=== PATIENT | male | born 1960 | race Caucasian/White ===

== ENCOUNTER 2017-11-02 06:15 | Inpatient (IN) | payer OTHER ==
[~2017-11-02 06:15] MED LIST: ACETAMINOPHEN 1,000 MG/100 ML BTL IV ONE; CEFAZOLIN 2 Gram 2 GM/50 ML BAG IVPB ONE; FAMOTIDINE 20MG TABLET PO ONE; MECLIZINE 25 MG TABLET PO ONE; METOCLOPRAMIDE 10 MG TABLET PO ONE
[2017-11-02] MEDS ORDERED: SENNOSIDES/DOCUSATE SODIUM UD CAPSULE PO PRN (10:00)
[2017-11-02] MEDS ORDERED: OXYCODONE HCL 5 MG TABLET PO PRN (10:00)
[2017-11-02] MEDS ORDERED: TRAMADOL HCL 50 MG TABLET PO PRN ×2 (10:00)
[2017-11-02] MEDS ORDERED: DIPHENHYDRAMINE HCL 25 MG CAPSULE PO PRN (10:00)
[2017-11-02] MEDS ORDERED: HYDROMORPHONE HCL 1 MG/ML SYRINGE IVP PRN (10:00)
[2017-11-02] MEDS ORDERED: METOCLOPRAMIDE HCL 10 MG/2 ML VIAL IVP PRN (10:00)
[2017-11-02] MEDS ORDERED: ZOLPIDEM TARTRATE 5 MG TABLET PO PRN (10:00)
[2017-11-02] MEDS ORDERED: AL HYDROX/MAG HYDROX 30ML UD PO PRN (10:00)
[2017-11-02] MEDS ORDERED: MAGNESIUM HYDROXIDE 30 ML UDC PO PRN (10:00)
[2017-11-02] MEDS ORDERED: RINGERS SOLUTION,LACTATED 1,000 ML IV PRN (10:07)
[2017-11-02] MEDS: RINGERS SOLUTION,LACTATED 1,000 ML IV SCH (10:29)
[2017-11-02] MEDS ORDERED: PNEUM 23-VAL ADULT IM ONE (10:53)
[2017-11-02] MEDS ORDERED: TRANEXAMIC ACID 1,000 MG in 0.9 % SODIUM CHLORIDE 100ML 100 ML IVPB ONE (11:00)
[2017-11-02] MEDS: ONDANSETRON HCL IV 4 MG/2 ML VIAL IVP PRN ×2 (12:25→18:36)
[2017-11-02] MEDS: ACETAMINOPHEN 1,000 MG/100 ML BTL IV SCH ×2 (12:25→18:30)
--- NOTE | 2017-11-02 12:30 | Operative Note ---
DATE OF SURGERY: 11/02/2017 Surgeon: Bryan Bernard D.O. REFERRING PHYSICIAN: Irineo Casper D.O. PREOPERATIVE DIAGNOSIS: Primary osteoarthritis of the right knee. POSTOPERATIVE DIAGNOSIS: Primary osteoarthritis of the right knee. OPERATION: Right total knee arthroplasty. PROCEDURE: This 56-year-old male was taken to the operating room and placed in the supine position on the operating room table, after spinal anesthesia had been induced by the Department of Anesthesia. The right lower extremity was then elevated. It was prepped with Hibiclens and draped in the usual sterile fashion. It was exsanguinated and the tourniquet inflated to 300 mm Hg. All scrub personnel wore personal isolation suits. An anterior longitudinal midline incision was made, followed by a medial peripatellar arthrotomy incision, and intercondylar drill holes made for the intramedullary alignment trace in the intercondylar notch, and the cutting block was affixed at 6 degrees of valgus. A 9 mm cut was made and wafers of bone were removed. We then placed the sizing jig, and a size 72.5 was deemed to be the appropriate size. A 4-in-1 cutting block was then pinned in 3 degrees of external rotation, and the appropriate cuts were made and wafer of bone removed. We then directed our attention to the proximal tibia, and an extramedullary alignment guide was used to cut the proximal tibia, referencing a 10 mm cut off the lateral tibial plateau, even though both tibial plateaus demonstrated severe articular cartilage damage. Subsequently, after appropriate alignment had been assured, a 3-degree posterior slope cut was made; wafer of bone was removed. The remnants of the menisci and osteophytes were removed from the posterior aspect of the joint. The tibia was sized to a size 79 and a stem punch was used. The patella was then measured, cut, and restored to anatomic height with a 37x8.6 mm trial, and the trial components were inserted, with an 11 mm bearing being found to give us the most stable configuration throughout the full range of motion. The trial components were then removed and the wound copiously irrigated with pulse lavage and lactated Ringer solution. The joint was suctioned and dried. Exparel was injected into the posterior, medial, and lateral corners of the joint, and all components were cemented into place and excess cement removed after the insertion of each component. Initially, a tibial base plate was placed, followed by the tibial bearing and femoral component, and finally the patella. Once the cement hard hardened, the knee was again taken through a range of motion and found to be stable. The remainder of the Exparel was injected into the periosteum and joint capsule of the proximal tibia and distal femur. A drain was placed through a separate stab incision. The arthrotomy incision was closed with 2-0 Vicryl, subcutaneous tissue closed with 0 Vicryl, and skin was stapled. Sterile dressings and a Polar Care were applied, and the patient was taken to the recovery room in satisfactory condition. GROSS PATHOLOGY: This patient had severe osteoarthritis with full-thickness articular cartilage loss noted at the patella and both the medial and lateral compartments as well, the lateral compartment being surprisingly deficient. The final components inserted were a size 72.5 cruciate-retaining femur, a 79 tibia base plate, a 37x8.6 mm patella, and 11x79 mm anterior stabilized tibial bearing. [facility]
[2017-11-02] MEDS: OXYCODONE HCL 5 MG TABLET PO PRN ×3 (12:49→22:25)
[2017-11-02] MEDS ORDERED: BUPIVACAINE 0.75% W/EPI MPF 30ML VIAL IVP ONE (15:33)
[2017-11-02] MEDS ORDERED: TRANEXAMIC ACID 1,000 MG/10 ML ML IV ONE (15:33)
[2017-11-02] MEDS ORDERED: BUPIVACAINE LIPOSOME 266MG/20ML VIAL IV ONE (15:33)
[2017-11-02] MEDS: CEFAZOLIN 2 Gram 2 GM/50 ML BAG IVPB SCH ×2 (15:44→22:38)
[2017-11-02] MEDS: FONDAPARINUX 2.5 MG/0.5 ML SYR SQ SCH (15:45)
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
[2017-11-03] MEDS: ACETAMINOPHEN 1,000 MG/100 ML BTL IV SCH (01:25)
[2017-11-03] MEDS: OXYCODONE HCL 5 MG TABLET PO PRN ×2 (02:29→06:22)
[2017-11-03] MEDS: RINGERS SOLUTION,LACTATED 1,000 ML IV SCH (03:22)
[2017-11-03 06:44] LABS: HEMATOCRIT 39.5 % (42.0-52.0); HEMOGLOBIN 12.2 gm/dl (14.0-18.0); MEAN CELL VOLUME 84.2 fl (81-97); MEAN CORPUSCULAR HGB CONC 30.9 g/dl (32-36); MEAN PLATELET VOLUME 9.7 fl (7.4-10.4); PLATELET COUNT 244 K/uL (130-400); RED BLOOD COUNT 4.69 M/uL (4.40-5.70); RED CELL DISTRIBUTION WIDTH 13.4 % (11.5-14.5); WHITE BLOOD COUNT W/O DIFF 10.2 K/uL (4.2-12.2)
[2017-11-03] MEDS: CEFAZOLIN 2 Gram 2 GM/50 ML BAG IVPB SCH (07:45)
[2017-11-03] MEDS ORDERED: METFORMIN 500 MG TABLET PO SCH (08:00)
--- NOTE | 2017-11-03 09:28 | Physical Therapy Tx Note ---
Physical Therapy Tx Note - Treatment Note Tolerated: Good Total Time Spent With Patient: 30 Physical Therapy Tx Note: Detail (Patient states 7/10 pain in right knee. Patient transferred supine to sit min assist x1 to support right LE. Patient transferred sit to and from stand CGA x1. Patient ambulated 102 feet with standard walker CGA x1. Patient performed the following exercises x10 reps each : ankle pumps, quad sets, glut squeezes, seated heel slides, seated hamstring sets, and SLR with assist. Patient transferred sit to supine min assist x1 to support right LE. Patient was left supine in bed with intermittent pneumatic compression, cryo, and call light within reach.) Physical Therapy Problem List: Detail (1) LE weakness 2) Balance impairment 3) LE ROM restriction 4) Dependent with bed mobility and transfer 5) Poor safety awareness) Physical Therapy Goals: 1) Pt. will independently ambulate household distances with AD and not exhbit balance loss. 2) Pt. will be independent with bed mobility and transfer. 3) Pt. will verbalize understanding of HEP and precautions. 4) Pt. will independently ascend and descend at least 2 steps with or without AD and exhibit good understanding of LE advancement. 5) Pt. will exhibit good midline positioning with standing balance assessment for more than 1 minute duration. Prognosis: Good Physical Therapy Plan: Pt. is to be seen 1-2x per day for inpatient PT until inpatient PT goals met, and treatment will consist of bed mobility training, gait training, exercise instruction and performance for extremity strengthening and stretching, balance training, and transfer/safety training for safe D/C to home environment.
[2017-11-03] MEDS ORDERED: ACETAMINOPHEN 325 MG TAB PO PRN (10:00)
[2017-11-03] MEDS ORDERED: LISINOPRIL 20 MG TABLET PO SCH (10:00)
[2017-11-03] MEDS ORDERED: HYDROCODONE/APAP 7.5/325MG TABLET PO PRN ×2 (10:00)
[2017-11-03] MEDS ORDERED: HYDROCHLOROTHIAZIDE 12.5 MG CAPSULE PO SCH (10:00)
[2017-11-03] MEDS ORDERED: OXYCODONE/APAP 7.5MG/325MG TABLET PO PRN (10:00)
[2017-11-03] MEDS: OXYCODONE/APAP 7.5MG/325MG TABLET PO PRN ×2 (10:15→17:56)
[2017-11-03] MEDS ORDERED: LIDOCAINE 2% MDV (20MG/ML) 20ML VIAL IV ONE (14:36)
[2017-11-03] MEDS ORDERED: DIPHENHYDRAMINE HCL IV 50 MG/ML VIAL IVP ONE (14:36)
[2017-11-03] MEDS ORDERED: HYDROMORPHONE HCL 2 MG/ML VIAL IV ONE (14:36)
[2017-11-03] MEDS ORDERED: FENTANYL PF 100MCG/2ML VIAL IV ONE (14:36)
[2017-11-03] MEDS ORDERED: MIDAZOLAM HCL 2MG/2ML VIAL IV ONE (14:36)
[2017-11-03] MEDS ORDERED: PROPOFOL 10 MG/ML VIAL IV ONE (14:36)
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
--- NOTE | 2017-11-03 15:40 | Physical Therapy Tx Note ---
Physical Therapy Tx Note - Treatment Note Tolerated: Good Total Time Spent With Patient: 30 Physical Therapy Tx Note: Detail (Patient states right knee painful this afternoon. Patient transferred supine to sit min assist to support right LE. Patient transferred sit to and from stand CGA x1. Patient ambulated 102 feet with standard walker CGA x1. Patient ascended and descended 3 steps with using walker and stairwell railing CGA x1. Patient transferred sit to supine min assist to support right LE. Patient tolerated treatment well. Patient reports good understanding of HEP. Patient reports good understanding of stair climbing. Patient discharged from inpatient PT at this time as patient passed all inpatient PT goals. Patient was left supine in bed with call light within reach.) Physical Therapy Problem List: Detail (1) LE weakness 2) Balance impairment 3) LE ROM restriction 4) Dependent with bed mobility and transfer 5) Poor safety awareness) Physical Therapy Goals: 1) Pt. will independently ambulate household distances with AD and not exhbit balance loss. 2) Pt. will be independent with bed mobility and transfer. 3) Pt. will verbalize understanding of HEP and precautions. 4) Pt. will independently ascend and descend at least 2 steps with or without AD and exhibit good understanding of LE advancement. 5) Pt. will exhibit good midline positioning with standing balance assessment for more than 1 minute duration. Prognosis: Good Physical Therapy Plan: Patient discharged from inpatient PT at this time, as patient has passed all inpatient goals.
[2017-11-03] MEDS: FONDAPARINUX 2.5 MG/0.5 ML SYR SQ SCH (16:24)
--- NOTE | 2017-11-06 12:40 | Discharge Summary ---
DATE OF ADMISSION: 11/02/2017 DATE OF DISCHARGE: 11/03/2017 Surgeon: Bryan Bernard DO ADMITTING DIAGNOSIS: Osteoarthritis of the right knee. DISCHARGE DIAGNOSIS: Osteoarthritis of the right knee. OPERATIVE PROCEDURE: Elective right total knee arthroplasty. HISTORY OF PRESENT ILLNESS: This 56-year-old male was admitted to the hospital for elective total knee arthroplasty, tolerated the operative procedure well during his first postoperative day. He cleared physical therapy and was ready for discharge. He showed no signs of complications during the course of his hospitalization, and was discharged with instructions to have outpatient physical therapy, to wear his ELVIA hose during the day and remove them at night. He will take 81 mg of aspirin daily, which is his usual daily dose. He was given a prescription for [place] 7.5/325 #80, 1 or 2 every 6 hours as necessary for pain. Routine wound care instructions were given. He will follow up in the office in 2 weeks. Should he have any problems prior to being seen, he was instructed to call my office. ARAM
== END 2017-11-03 18:35 | disposition home or self-care (01) | DRG 470 ==
LOC: MEDSURG 06:15
PROVIDERS: ADMIT Orthopaedic Surgery; ATTEND Orthopaedic Surgery
PROC: 0SRC069 Replacement of Right Knee Joint with Oxidized Zirconium on Polyethylene Synthetic Substitute, Cemented, Open Approach (ICD-10-PCS; principal; 2017-11-02 08:00)
DX: M17.12 Unilateral primary osteoarthritis, left knee (principal); E11.9 Type 2 diabetes mellitus without complications; Z79.84 Long term (current) use of oral hypoglycemic drugs; I10 Essential (primary) hypertension; Z79.4 Long term (current) use of insulin
CPT/HCPCS: 36416; 82948; 85025; 93005; 97110; 97165; 97530; J1200; J2405; J2765; J3490

== ENCOUNTER 2019-05-10 22:46 | Emergency (ER) | payer OTHER ==
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
[2019-05-10 23:20] LABS: ABSOLUTE NEUTROPHIL COUNT 5.63; BASO % 0.2 % (0-6); EOS % 1.6 % (0-6); GRAN % 63.3 % (47-80); HEMOGLOBIN 13.4 gm/dl (14.0-18.0); LYMPH % 22.4 % (16-45); MEAN CELL VOLUME 84.8 fl (81-97); MEAN CORPUSCULAR HGB CONC 31.9 g/dl (32-36); MEAN PLATELET VOLUME 9.6 fl (7.4-10.4); MONO % 12.5 % (0-9); PLATELET COUNT 255 K/uL (130-400); RED BLOOD COUNT 4.95 M/uL (4.40-5.70); RED CELL DISTRIBUTION WIDTH 13.9 % (11.5-14.5); WHITE BLOOD COUNT W/O DIFF 8.9 K/uL (4.2-12.2)
[2019-05-10 23:29] LABS: BLOOD UREA NITROGEN 25 mg/dL (6-20)
[2019-05-10 23:30] LABS: CREATININE 0.9 mg/dL (0.7-1.2); EST GLOMERULAR FILTRATION RATE > 60 mL/min
[2019-05-10 23:32] LABS: GLUCOSE,RANDOM 168 mg/dL (74-109)
[2019-05-10 23:35] LABS: ALB/GLOB RATIO 1.7 (1.1-1.8); ALBUMIN 4.4 g/dL (4.0-5.0); ALKALINE PHOSPHATASE 59 U/L (40-129); ALT/SGPT 33 U/L (<41); AST/SGOT 19 U/L (10.0-50.0)
== END 2019-05-11 00:09 | disposition home or self-care (01) ==
LOC: ER 22:46
DX: R06.00 Dyspnea, unspecified (principal); R14.0 Abdominal distension (gaseous); M54.2 Cervicalgia; I10 Essential (primary) hypertension; E11.9 Type 2 diabetes mellitus without complications
CPT/HCPCS: 71046; 80053; 84484; 85025; 93005; 93010; 99284

== ENCOUNTER 2019-05-28 00:18 | Observation (INO) | payer OTHER ==
[2019-05-28] MEDS ORDERED: LORAZEPAM 2 MG/ML VIAL IV ONE (00:21)
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
[2019-05-28 00:49] LABS: ABSOLUTE NEUTROPHIL COUNT 4.78; BASO % 0.2 % (0-6); EOS % 2.9 % (0-6); GRAN % 59.5 % (47-80); HEMOGLOBIN 13.5 gm/dl (14.0-18.0); LYMPH % 28.4 % (16-45); MEAN CELL VOLUME 84.3 fl (81-97); MEAN CORPUSCULAR HEMOGLOBIN 27.1 pg (27-33); MEAN CORPUSCULAR HGB CONC 32.1 g/dl (32-36); MEAN PLATELET VOLUME 9.8 fl (7.4-10.4); PLATELET COUNT 228 K/uL (130-400); RED BLOOD COUNT 4.98 M/uL (4.40-5.70); RED CELL DISTRIBUTION WIDTH 13.9 % (11.5-14.5)
[2019-05-28 00:51] LABS: BLOOD UREA NITROGEN 22 mg/dL (6-20); EST GLOMERULAR FILTRATION RATE > 60 mL/min
[2019-05-28 00:54] LABS: GLUCOSE,RANDOM 126 mg/dL (74-109)
[2019-05-28] MEDS ORDERED: 0.9 % SODIUM CHLORIDE 1000ML 1,000 ML IV PRN (01:39)
[2019-05-28] MEDS ORDERED: PIOGLITAZONE 15 MG PO SCH (07:00)
[2019-05-28] MEDS ORDERED: LISINOPRIL 30 MG PO SCH (07:00)
[2019-05-28] MEDS ORDERED: HYDROCHLOROTHIAZIDE 25 MG PO SCH (07:00)
[2019-05-28] MEDS ORDERED: ROSUVASTATIN 5 MG PO SCH (07:00)
[2019-05-28] MEDS ORDERED: CANAGLIFLOZIN 300 MG PO SCH (07:00)
--- NOTE | 2019-05-28 08:37 | RADIOLOGY REPORT ---
EXAM: CHEST, TWO VIEWS HISTORY: CHEST TIGHTNESS. DIFFICULTY IN BREATHING. LOWER EXTREMITY SWELLING FOR ONE MONTH. TECHNIQUE: Upright PA and lateral views of the chest were obtained. Comparison: Two view chest radiographic examination dated 05/10/19. FINDINGS: The cardiomediastinal silhouette is normal in size and configuration. The pulmonary vasculature is nondilated. The lungs and pleural spaces are clear. No acute osseous abnormality. IMPRESSION: NO RADIOGRAPHIC EVIDENCE OF ACUTE CARDIOPULMONARY DISEASE. JOB NUMBER: [id number] [facility]
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
[2019-05-28] MEDS: METFORMIN 500 MG PO SCH (19:00)
[2019-05-28] MEDS: PIOGLITAZONE 15 MG PO SCH (19:30)
[2019-05-29] MEDS ORDERED: ROSUVASTATIN 5 MG PO SCH (06:00)
[2019-05-29] MEDS ORDERED: CANAGLIFLOZIN 300 MG PO SCH (06:00)
[2019-05-29] MEDS ORDERED: HYDROCHLOROTHIAZIDE 25 MG PO SCH (06:00)
[2019-05-29] MEDS ORDERED: LISINOPRIL 30 MG PO SCH (06:00)
[2019-05-29] MEDS: PIOGLITAZONE 15 MG PO SCH (07:24)
[2019-05-29] MEDS: METFORMIN 500 MG PO SCH (07:24)
[2019-05-29] MEDS ORDERED: PANTOPRAZOLE SODIUM 40 MG TABLET PO SCH (14:00)
--- NOTE | 2019-05-29 14:31 | Discharge Summary ---
Providers Discharge Summary Date: 05/29/19 Date of admission: 05/28/19 01:27 Attending physician: JEANNE LUNDBERG Primary care physician: Irineo Casper D.O. Consults: Consult Orders 05/28/19 10:01 Consult - Cardiology NOW Consulting Provider: Darrion Duarte Physician Instructions: Reason For Exam: nocturnal dyspnea, already on CPAP Does pt have current soda fountain manager?: Not Established Physical Exam - Vital Signs Vital Signs: Vital Signs - Last 24 Hrs Temp Pulse Resp BP Pulse Ox 05/29/19 09:00 20 05/29/19 07:15 97.7 F 74 18 123/70 97 05/29/19 00:00 97.9 F 74 18 127/63 98 05/28/19 16:00 97.6 F 72 18 125/69 100 - General General Appearance: Alert, Oriented x3, Cooperative, No acute distress Limitations: No limitations - Head Head exam: Atraumatic, Normocephalic, Normal inspection Head exam detail: negative: Abrasion, Contusion, Avila's sign, General tenderness, Hematoma, Laceration - Eye Eye exam: Normal appearance. negative: Conjunctival injection, Periorbital swelling, Periorbital tenderness, Scleral icterus - ENT Ear exam: negative: Auricular hematoma, Auricular trauma Nasal Exam: negative: Active bleeding, Discharge, Dried blood, Foreign body Mouth exam: negative: Drooling, Laceration, Muffled voice, Tongue elevation - Neck Neck exam: Normal inspection. negative: Meningismus, Tenderness - Respiratory Respiratory exam: Normal lung sounds bilaterally. negative: Rales, Respiratory distress, Rhonchi, Stridor - Cardiovascular Cardiovascular Exam: Regular rate, Normal rhythm, Normal heart sounds - GI/Abdominal GI/Abdominal exam: Soft. negative: Rebound, Rigid, Tenderness - Rectal Rectal exam: Deferred - exam: Deferred - Extremities Extremities exam: Normal inspection. negative: Pedal edema, Tenderness - Back Back exam: Denies: CVA tenderness (R), CVA tenderness (L) - Neurological Neurological exam: Alert, Normal gait, Oriented X3 - Psychiatric Psychiatric exam: Anxious - Skin Skin exam: Normal color. negative: Abrasion Type of lesion: negative: abrasion Hospitalization - Hospitalization Admission Diagnosis: Atypical chest pain - Problem List/Discharge Diagnosis (1) Atypical chest pain Current Visit: Yes Status: Acute Base Code: R07.89 - OTHER CHEST PAIN Comment: 05/29/19 - EKG in ED NSR - Troponin 1,2, 3 <0.010 - Nuclear stress test negative for acute process or concern - Echo unremarkable for acute concern - Cardiology consult completed, no new recommendations or need for continued service - Acid reflux vs. anxiety vs. CPAP malfunction. Will initiate PPI trial (2) Full code status Current Visit: Yes Status: Acute Base Code: Z78.9 - OTHER SPECIFIED HEALTH STATUS Comment: 05/29/19 (3) DVT prophylaxis Current Visit: Yes Status: Acute Base Code: Z29.9 - ENCOUNTER FOR PROPHYLACTIC MEASURES, UNSPECIFIED Comment: 05/29/19 - Nursing to encourage frequent ambulation - Hospitalization Course Disposition: Home, Self-Care Hospital Course: 58 y/o male presented to ED with shortness of breath, "heat sensation" in chest and hyperventilating. He reports he has had these symptoms intermittently for the past 2 months. He does wear CPAP for WING each night and is compliant with this. Reports these symptoms occur during his sleeping hours (he works nights), can occur ever other day to every couple of weeks. Denies any stressors at home. He feels he is having panic attacks but can't correlate to any distress he may be having. He notices a pattern of these symptoms happening on the nights he does not work. On these nights his sleep pattern is different, tends to munch on "whatever is in the kitchen" up until he lays down for bed. Does eat a lot of acid-rich foods and pizza. No previous hx of GERD and denies any indigestion. Had nuclear stress test ordered by PCP, 1st part done the day prior to arrival to ED- no results available for review. Past medical history includes WING with CPAP, HTN, colon polyps, DM-2, OA. Upon arrival to ED VSS. CBC, CMP unremarkable. Troponin 1 and 2 <0.010, BNP 151.2. CXR negative for acute process. Was short of breath and anxious upon arrival, did have Ativan 0.5mg x 1 dose and reports his symptoms completely resolved. Admitted for serial cardiac enzymes, part 2 of nuclear stress test, and cardiology consult. 05/28/19- Resting in bed comfortably. Reports he has been asymptomatic since a rrival to the floor. 05/29/19- Hospital course unremarkable. No further chest pain, chest burning, or hyperventilation episode since arrival to the floor. VSS. Cardiology consult with no new recommendations or continued need to service. Will trial PPI per his report of eating habits on his days off. May also need a reevaluation of CPAP settings if symptoms return. Follow up with PCP in 1 week. PCP: Dr Casper Procedures: Imaging and X-Rays 05/28/19 00:28 CHEST 2 VIEWS [RAD] Stat Cardiology Procedures 05/28/19 07:04 Echo W/CF & Cardiac Doppler ONCE Abnormal Labs: Abnormal Lab Results 05/28/19 05/28/19 05/28/19 Range/Units 00:35 00:35 00:35 Hgb 13.5 L (14.0-18.0) gm/dl BUN 22 H (6-20) mg/dL Random Glucose 126 H (74-109) mg/dL NT-Pro-B Natriuret Pep 151.20 H (<125) pg/mL Condition at Discharge: (2) Stable Discharge Medications - Discharge Medications Prescriptions: Pantoprazole Sodium [Protonix] 40 mg PO DAILYAC #30 tablet. Home Medications: Ambulatory Orders Canagliflozin [Invokana] 300 mg PO DAILY 05/10/19 [Last Taken Unknown] Exenatide Microspheres [Bydureon Pen] 2 mg SC WEEKLY 05/10/19 [Last Taken Unknown] Hydrochlorothiazide [Hctz] 25 mg PO DAILY 05/10/19 [Last Taken Unknown] Lisinopril 30 mg PO DAILY 05/10/19 [Last Taken Unknown] Metformin HCl [Metformin HCl ER] 500 mg PO BID 05/10/19 [Last Taken Unknown] Pioglitazone HCl [Actos] 15 mg PO BID 05/10/19 [Last Taken Unknown] Rosuvastatin Calcium 5 mg PO DAILY 05/10/19 [Last Taken Unknown] Multivit-Min/FA/Lycopen/Lutein [Men 50 Plus Multivitamin Tab] 1 each PO DAILY 05/28/19 [Last Taken Unknown] [place]-3/Dha/Epa/Fish Oil [Fish Oil 1,000 mg Softgel] 1 each PO BID 05/28/19 [Last Taken Unknown] Pantoprazole Sodium [Protonix] 40 mg PO DAILYAC #30 tablet. 05/29/19 [Last Taken Unknown] Discharge Plan - Discharge Instructions Activity at Discharge: Increase Activity as Tolerated Diet at Discharge: Diabetic Diet Additional Instructions: - Follow up with PCP in 1 week - Return to ER if any return of chest pain Quality Measures - Quality Measures Quality Measures: Documentation of Current Medications in Medical Record, Screening for High Blood Pressure and F/U Documented - Current Medications Quality Measure: Measure #130: Documentation of Current Medications Documentation of Current Medications: <Current Medications Documented/Reviewed> [G8427] - Blood Pressure Screening Quality Measure: Screening for High Blood Pressure and Follow-Up Documented Does Patient Have Any of the Following: Active Dx of HTN Blood Pressure Classification: Pre-Hypertensive BP Reading Systolic Measurement: 158 Diastolic Measurement: 88 Screening for High Blood Pressure: Patient Exclusion, Hx of HTN [G9744] - Elder Abuse Suspicion Index EASI Reference Information: Tai KIRBY, Anitha C, Edgar D, [place] Nadiu.Development and validation of a tool to assist physicians identification of elder abuse: The Elder Abuse Suspicion Index (EASI ). Journal of Elder Abuse and Neglect, 2008; 20 (3): 276-300.
--- NOTE | 2019-05-30 10:00 | Stress Test Report ---
DATE OF SERVICE: The patient is a 58-year-old who is undergoing a 2-day treadmill stress Cardiolite for dyspnea. His resting dose of Technetium sestamibi on 05/28/2019 was 31.8 millicuries. His stress dose on 05/27/2019 was 32.2 millicuries. His ECG at rest demonstrates sinus rhythm with normal axis and intervals. Resting heart rate is 82 beats per minute, and blood pressure 153/92. He exercised for a total duration of 9 minutes. His maximum heart rate was 160, which is 99% of age-predicted maximal heart rate. Peak blood pressure was 191/69, which was a normal response. Continuous ECG monitoring demonstrated approximately [address] depression. Perfusion imaging demonstrated normal perfusion scan without evidence of ischemia. The left ventricular ejection fraction on gated imaging was 61%. FINAL IMPRESSION: 1. Asymptomatic maximal pavan stress completing 10 mets with no definitive ECG evidence for ischemia. 2. Normal perfusion scan. 3. Left ventricular ejection fraction of 61%. MTDD
--- NOTE | 2019-05-30 12:30 | Medical Records Consult ---
DATE OF CONSULTATION: REASON FOR CONSULTATION: The patient is 58 years old and was seen in consultation for nocturnal dyspnea. HISTORY OF PRESENT ILLNESS: The patient is 58 years old who presented to [facility] on 05/28/2019 with a complaint of chest discomfort and dyspnea when lying down. He has history of obstructive sleep apnea for 12-15 years and routinely utilizes a CPAP machine. He reports recently while using CPAP he got dyspneic and diaphoretic. He also reported some substernal chest discomfort. He denies any chest pain with exertional activity. He reports having significant history of anxiety disorder. His cardiac risk factors include diabetes mellitus and hypertension. His ECG on arrival demonstrates sinus rhythm with no significant ST-T changes. His troponins were negative. A proBNP was 151 which is negative for any evidence of heart failure. He underwent a 2-day Lexiscan stress Cardiolite demonstrating no evidence of ischemia and normal ejection fraction. Echocardiogram also demonstrated normal ejection fraction and no structural abnormalities. PAST MEDICAL HISTORY: Diabetes mellitus for approximately 7 years, obstructive sleep apnea on CPAP for 12-15 years, hypertension, hyperlipidemia. PAST SURGICAL HISTORY: Right knee replacement. MEDICATIONS: 1. Metformin 500 mg b.i.d. 2. Pioglitazone 15 mg b.i.d. 3. Canagliflozin 300 mg daily. 4. Hydrochlorothiazide 25 mg daily. 5. Lisinopril 30 mg daily. 6. Rosuvastatin 5 mg daily. ALLERGIES: None. SOCIAL HISTORY: He drives a truck. FAMILY HISTORY: He has a father who of cancer. His mother of cancer at age 68. She also had coronary artery bypass surgery x3 vessels. PHYSICAL EXAMINATION: VITAL SIGNS: He is afebrile. Pulse 72, respiration 18, blood pressure 129/69, 100% on room air. LUNGS: Clear to auscultation. CARDIAC: Normal. ABDOMEN: Obese. EXTREMITIES: No edema. IMPRESSION: 1. Nocturnal dyspnea and atypical chest pain. 2. Diabetes mellitus. 3. Hypertension. 4. Hyperlipidemia. PLAN: At this time, he presents with atypical chest pain, negative enzymes, and ECG within normal limits. Stress Cardiolite and echocardiogram were within normal limits. He has no evidence of congestive heart failure. He can be discharged from a cardiovascular standpoint for outpatient followup. ARAM
[2019-06-03] MEDS ORDERED: EXENATIDE 2 MG SC SCH (20:00)
== END 2019-05-29 15:15 | disposition home or self-care (01) ==
LOC: ER 00:18 → MEDSURG 01:27
PROVIDERS: ADMIT Internal Medicine; ATTEND Internal Medicine
DX: R07.89 Other chest pain (principal); I10 Essential (primary) hypertension; E11.9 Type 2 diabetes mellitus without complications; M19.90 Unspecified osteoarthritis, unspecified site; G47.30 Sleep apnea, unspecified; M54.5 Low back pain
CPT/HCPCS: 71046; 80048; 83880; 84484; 85025; 93005; 93010; 93306; 96374; 99217; 99220; 99285